=== PATIENT | female | born 1970 | race Caucasian/White ===

== ENCOUNTER 2021-11-16 19:25 | Emergency (ER) | payer SELFPAY | END 2021-11-16 23:30 | disposition home or self-care (01) | LOC: JD.ED 19:25 | DX: N39.0 Urinary tract infection, site not specified (principal); I10 Essential (primary) hypertension; Z79.899 Other long term (current) drug therapy | CPT/HCPCS: 36415; 71045; 71045-26; 80053; 81001; 83735; 84484; 85025; 85610; 93005; 99284-25 ==